=== PATIENT | female | born 1980 | race Two or more races ===

== ENCOUNTER 2024-07-25 10:03 | Emergency (ER) | payer OTHER ==
[2024-07-25 10:13] VITALS: TEMP 97.5; BMI 24.7
[2024-07-25] MEDS ORDERED: ACETAMINOPHEN 500 MG TABLET (FP) ONE (11:31)
[2024-07-25] MEDS: ACETAMINOPHEN 500 MG TABLET (FP) PO ONE (11:35)
[2024-07-25 12:00] LABS: BASO % 0.9 % (0-2.0); EOS % 1.1 % (0-4.5); HEMATOCRIT 37.3 % (32.4-45.2); HEMOGLOBIN 12.4 GM/dL (10.7-15.3); LYMPH % 26.4 % (8-40); MCH 28.7 pg (25.7-33.7); MCHC 33.3 g/dl (32.0-36.0); MEAN CELL VOLUME 86.3 fl (80-96); MONO % 9.5 % (3.8-10.2); NEUT % 62.1 % (42.8-82.8); PLATELET COUNT 331 10^3/uL (134-434); RBC 4.33 M/mm3 (3.60-5.2); RDW 15.5 % (11.6-15.6); WHITE BLOOD COUNT 6.9 K/mm3 (4.0-10.0)
[2024-07-25 12:22] LABS: POTASSIUM 4.1 mmol/L (3.5-5.1)
[2024-07-25 12:24] LABS: CALCIUM 9.1 mg/dL (8.5-10.1)
[2024-07-25 12:25] LABS: ALBUMIN 3.8 g/dl (3.4-5.0); BLOOD UREA NITROGEN 9.2 mg/dL (7-18)
[2024-07-25 12:28] LABS: CREATININE 0.7 mg/dL (0.55-1.3)
[2024-07-25 12:30] LABS: BILIRUBIN,TOTAL 0.4 mg/dL (0.2-1); TOT PROT 7.5 g/dl (6.4-8.2)
[2024-07-25 15:42] VITALS: BP 111/60; PULSE 63; RESP 20
== END 2024-07-25 15:50 | disposition home or self-care (01) ==
LOC: JER 10:03
DX: R06.02 Shortness of breath (principal); R22.1 Localized swelling, mass and lump, neck; Z20.822 Contact with and (suspected) exposure to COVID-19
CPT/HCPCS: 0241U-QW; 36415; 70450-TC; 70491-TC; 71045-TC-FY; 80053; 84443; 84703; 85025; 93005; 93010; 99285-25; Q9967